=== PATIENT | female | born 1955 | race African-American/Black ===

== ENCOUNTER 2018-09-11 07:20 | Day surgery (SDC) | payer OTHER ==
[~2018-09-11] VITALS: Ht 160 cm; Wt 87.3 kg
[2018-09-11 08:17] VITALS: Ht 160 cm; Wt 87.3 kg
[2018-09-11 08:24] VITALS: BP 184/92; PULSE 56; RESP 16
[2018-09-11] MEDS ORDERED: FERROUS SULFATE (08:24)
--- NOTE | 2018-09-11 08:31 | PREAC ---
Date/Time of Note Date/Time of Note DATE: 09/11/18 TIME: 08:30 Anesthesia Eval and Record Evaluation Time Pre-Procedure Interview DATE: 09/11/18 TIME: 08:30 Age 63 Sex female NPO: 8 hrs Preoperative diagnosis screening Planned procedure colonoscopy Past Medical History Past Medical History: None Surgery & Anesthesia Issues No known issue Meds Anticoagulation: No Beta Zhane within 24 hr: No Reason Beta Zhane not given: Pt. not on B-Zhane Reported Medications [Ferrous Sulfate] No Conflict Check 09/11/18 Meds reviewed: Yes Allergies Coded Allergies: No Known Allergy (Unverified , 09/11/18) Allergies Reviewed: Yes Labs/Studies Labs Reviewed: Reviewed by anesthesiologist test: N/A Studies: ECG (n/a), CXR (n/a) Pre-procedure Exam Last vitals Vital Signs Date Temp Pulse Resp B/P (MAP) Pulse Ox O2 O2 Flow FiO2 Time Delivery Rate 09/11/18 98.6 56 16 184/92 98 Room Air 08:24 (122) Airway: Adequate mouth opening Mallampati: Mallampati I Teeth: Normal Lung: Normal Heart: Normal ASA Physical Status ASA physical status: 1 Emergency: None Planned Anesthetic General/MAC: MAC Pre-operative Attestations Prior to commencing anesthesia and surgery, the patient was re-evaluated, there was verification of: *The patient's identity *The results of appropriate recent lab work and preoperative vital signs *The above evaluation not changing prior to induction *Anesthetic plan, risk benefits, alternative and complications discussed with patient/family; questions answered; patient/family understands, accepts and wishes to proceed. YONG MILLER MD September 11, 2018 08:31
[2018-09-11] MEDS ORDERED: PROPOFOL 20 ML ONE (08:34)
[2018-09-11] MEDS ORDERED: FENTAnyl 50 MCG/ML VIAL ONE (08:34)
[2018-09-11] MEDS ORDERED: FENTAnyl 50 MCG/ML VIAL IV PRN (09:00)
[2018-09-11] MEDS ORDERED: ONDANSETRON 4 MG INJ IV PRN (09:00)
[2018-09-11 09:37] VITALS: BP 182/22; PULSE 55; RESP 18
--- NOTE | 2018-09-11 11:29 | CONS ---
DATE OF ADMISSION: 09/11/2018 DATE OF CONSULTATION: PATIENT NAME: RAFFI FRANK Dear Dr. Lockwood: I thank you very much for this kind referral. HISTORY OF PRESENT ILLNESS: Ms. Raffi Frank is a 63-year-old female patient who has been referre d to me for further evaluation of change in the bowel habit with rectal bleeding. The patient also h as got iron deficiency anemia. No past history of colon neoplasm. The patient never had screening c olonoscopy. Appetite is good. No weight loss. No upper abdominal pain. Not on nonsteroidal anti-i nflammatory agents. No history of gallstones or liver disease. Not a hypertensive or diabetic. No heart disease, lung problem or kidney disease. SOCIAL HISTORY: Nonsmoker. No alcohol abuse. FAMILY HISTORY: No family history of gastrointestinal tract neoplasm. ALLERGIES: NO DRUG ALLERGIES. MEDICATION: Ferrous sulfate. PHYSICAL EXAMINATION: VITAL SIGNS: She is 5 feet 4 inches tall and weighs 200 pounds. HEART: Normal heart sounds. LUNGS: Clear. ABDOMEN: Soft. No masses. Normal bowel sounds. NEUROLOGIC: Normal neurological exam. RECTAL: Examination deferred per the patient's request. It will be done at the time of colonoscopy. IMPRESSION: 1. Change in the bowel habit. 2. History of rectal bleeding. 3. Iron deficiency anemia. 4. The patient never had screening colonoscopy. 5. Obesity. PLAN 1. Screening colonoscopy. 2. Because of the obesity with a short thick neck, she needs monitored anesthesia care. The procedure and possible complications are well explained to the patient. She understands and cons ents to the procedure. I thank you once again. With warmest personal regards, Dictated By: TREMAINE CAVANAUGH/DAMON Conf#: [id number] DID#: [id number] CC: ANA ROSA LOCKWOOD;*EndCC*
--- NOTE | 2018-09-11 11:43 | PAC ---
Date/Time of Note Date/Time of Note DATE: 09/11/18 TIME: 11:43 Post-Anesthesia Notes Post-Anesthesia Note Last documented vital signs Vital Signs Date Temp Pulse Resp B/P (MAP) Pulse Ox O2 O2 Flow FiO2 Time Delivery Rate 09/11/18 98.6 55 18 182/22 100 Room Air 09:37 (75) 09/11/18 98.6 08:24 Activity: WNL Respiratory function: WNL Cardiovascular function: WNL Mental status: Baseline Pain reasonably controlled: Yes Hydration appropriate: Yes Nausea/Vomiting absent: No YONG MILLER MD September 11, 2018 11:43
== END 2018-09-11 11:54 | disposition home or self-care (01) ==
LOC: GIL 07:20
PROVIDERS: ATTEND Internal Medicine Gastroenterology
DX: Z12.11 Encounter for screening for malignant neoplasm of colon (principal); K64.8 Other hemorrhoids
CPT/HCPCS: 45378; J3010